=== PATIENT | female | born 2000 | race Caucasian/White ===

== ENCOUNTER 2023-05-28 22:34 | Emergency (ER) | payer SELFPAY ==
[2023-05-28 22:36] VITALS: BP 142/93; PULSE 76; RESP 18; TEMP 36.9; O2SAT 98
--- NOTE | 2023-05-28 23:00 | ED.GENADUL_ITS ---
Discharge Plan Disposition Patient Disposition: Home Condition: Improving Discharge Details Clinical Impression: Anxiety Primary Care Provider: Unknown,Unknown ED Provider: Terell Bassett Discharge Instructions Instructions: Anxiety (ED) Discharge Data Discharge Physician: Terell Bassett Medical Decision Making MDM: Summary: Patient with generalized anxiety who is not suicidal or homicidal I have spoke with him at length and he has a therapist that he was going to talk tomorrow tonight he lorazepam 1 mg states he feels better and will be discharged home Data Review Analysis All the data on this patient was reviewed by me including laboratory and imaging studies as well as bedside studies performed by me Independent review of Studies Imaging Lab: Risk Stratification: Differential Diagnosis: 1. Anxiety disorder 2. Depression 3. 4. 5. Consultants: Shared disposition: Patient is with his brother who is with him and states that he will follow with a therapist Impression: Medical Records Medical records reviewed: Yes I reviewed the patient's medical records. HPI General Date/Time Provider Initiated Documentation: 05/28/23 22:44 . HPI Narrative: Patient presents emergency department complaining of feeling very anxious and he is being having inability to sleep. Reports that he was taking Advil PM and THC but states that still working anymore and today went out with some friends and came back and was feeling very anxious. Denies any suicidal ideation denies depression at this time. Does not know why he is anxious reason he came to the emergency department. Related Data Allergies Allergy/AdvReac Type Severity Reaction Status Date / Time No Known Allergies Allergy Unverified 05/28/23 23:02 General Stated Complaint: Anxiety CRYSTAL: 5 Review of Systems Narrative: Review of Systems: Constitutional: No fevers, chills, sweats Eye: No recent visual problems ENT: No ear pain, nasal congestion, sore throat Respiratory: No shortness of breath, cough Cardiovascular: No Chest pain, palpitations, syncope Gastrointestinal: No nausea, vomiting, diarrhea Genitourinary: No hematuria Guilherme/Lymph: Negative for bruising tendency, swollen lymph glands Endocrine: Negative for excessive thirst, excessive hunger Musculoskeletal: No back pain, neck pain, joint pain, muscle pain, decreased range of motion Integumentary: No rash, pruritus, abrasions Neurologic: Alert & oriented X 4 Psychiatric: Nodepression PFSH All Active Problems (Updated 05/28/23 @ 23:23 by Terell Bassett MD) Anxiety (Chronic) Social History Smoking/Tobacco Use Status: Current every day Tobacco Type: e-cigarettes Smoking risk assessment performed?: Yes Alcohol Intake: current Alcohol Intake frequency: a few times a week Drug use: Rarely Substance use type: marijuana Do you feel safe at home: Yes Do you feel safe in your relationship?: Yes Exam Narrative Exam Narrative: Exam; vitals signs as reported above Constitutional; In no acute distress, afebrile General: cooperative, healthy appearing, comfortable and no acute distress HEENT: Head: normal to inspection, no palpable skull fracture and normocephalic Eyes: l: appearance normal, both eyes and all related structures ]Pupils: PERRL EOM: EOM intact bilaterally Direct ophthalmoscopy: normal light reflex, normal conjunctiva, normal visual acuity Neck no JVD, supple Neck: normal visual inspection, full ROM and no lymphadenopathy Chest Chest: normal inspection of the chest Respiratory : normal respiratory effort and able to speak in complete sentences Cardio Rate: regular rate Rhythm: regular rhythm normal heart sounds S1 and S2 no murmurs, gallops, or rubs GI Inspection: normal to inspection, normal bowel sounds, soft, non tender, non distended, no organomegally Back/Spine/ no CVA tenderness Thoracic/Lumbar Spine: no tenderness or deformities Skin no rashes or lesions Neuro: patient alert and no meningeal signs, Cranial Nerves: CN's II-XI intact bilaterally, Cognition: normal cognition, Speech: speech normal, Gait: normal gait, Depp tendon reflexes normal 2+ Extremities, no edema, full range of motion, normal strength Psychiatric: Generalized anxiety but normal judgment. Normal reasoning Psych Appearance: grossly normal Mental Status: mental status grossly normal Speech and Movement: speech and movement normal Mood: anxious mood Attitude: cooperative Thought Process: normal Thought Content: normal Insight: insight good Course Vital Signs Vital signs: Vital Signs Temperature 36.9 C 05/28/23 22:36 Pulse 76 05/28/23 22:36 Respiratory Rate 18 05/28/23 22:36 Blood Pressure 142/93 H 05/28/23 22:36 Pulse Oximetry 98 05/28/23 22:36 Temperature 36.9 C 05/28/23 22:36 Temperature Source Temporal Artery Scan 05/28/23 22:36 Pulse 76 05/28/23 22:36 Respiratory Rate 18 05/28/23 22:36 Blood Pressure 142/93 H 05/28/23 22:36 Pulse Oximetry 98 05/28/23 22:36 Oxygen Delivery Method Room Air 05/28/23 22:36 Oxygen Flow Rate 0 05/28/23 22:36
[2023-05-28] MEDS: LORazepam 1 MG TAB PO (23:03)
== END 2023-05-28 23:28 | disposition home or self-care (01) ==
PROVIDERS: Emergency Provider Emergency Medicine Emergency Medical Services
DX: F41.9 Anxiety disorder, unspecified (principal)
CPT/HCPCS: 99283; 99284